=== PATIENT | male | born 1960 | race Caucasian/White ===

== ENCOUNTER → 2016-05-16 | Outpatient (CLI) | payer OTHER ==
[2016-05-16 18:16] LABS: BASO % 0.3 %; BASO ABS # 0.02 K/uL (0-0.2); COMPLETE YES; EOS % 3.6 %; HEMATOCRIT 39.1 % (42-52); IG% 0.2 %; LYMPH % 18.5 %; LYMPH ABS # 1.13 K/uL (1.2-3.4); MEAN CELL VOLUME 88.5 fL (80-100); MEAN CORPUSCULAR HEMOGLOBIN 31.4 pg (25-34); MEAN CORPUSCULAR HGB CONC 35.5 g/dl (32-36); MEAN PLATELET VOLUME 11.6 fL (7.4-10.4); MONO % 6.2 %; NEUT % 71.2 %; PLATELET COUNT 272 K/uL (130-400); RED BLOOD COUNT 4.42 M/uL (4.7-6.1)
[2016-05-16 18:26] LABS: BLOOD UREA NITROGEN 12 mg/dl (7-18); CREATININE 0.88 mg/dl (0.60-1.40); GLUCOSE 85 mg/dl (70-99)
[2016-05-16 18:27] LABS: ALT/SGPT 18 U/L (12-78); AST/SGOT 17 U/L (15-37); BUN/CREATININE RATIO 13.5 (10-20); CARBON DIOXIDE 25 mmol/L (21-32); CHLORIDE 108 mmol/L (98-107); POTASSIUM 3.6 mmol/L (3.5-5.1); SODIUM 141 mmol/L (136-145)
[2016-05-16 18:28] LABS: ALB/GLOB RATIO 1.3 (0.9-2); ALKALINE PHOSPHATASE 82 U/L (45-117)
== END | disposition home or self-care (01) ==
LOC: C.LABPSFOH 17:52
PROVIDERS: ATTEND Family Medicine
DX: N53.19 Other ejaculatory dysfunction (principal)

== ENCOUNTER → 2016-08-02 | Outpatient (CLI) | payer OTHER | END | disposition home or self-care (01) | LOC: C.LABSPEC 15:04 | PROVIDERS: ATTEND Family Medicine | DX: F52.21 Male erectile disorder (principal) ==